=== PATIENT | male | born 1975 | race Two or more races ===

== ENCOUNTER 2017-08-31 14:59 | Emergency (ER) | payer OTHER ==
[~2017-08-31] VITALS: Ht 170.2 cm; Wt 100.0 kg
[2017-08-31] MEDS ORDERED: PredniSONE 20 MG TABLET PO ONE (16:30)
[2017-08-31] MEDS ORDERED: HydrOXYzine HCL 25 MG TABLET PO ONE (16:30)
[2017-08-31 17:30] VITALS: BP 132/78
== END 2017-08-31 17:42 | disposition home or self-care (01) ==
LOC: EMS 15:01
DX: T78.40XA Allergy, unspecified, initial encounter (principal); R21 Rash and other nonspecific skin eruption; Z88.8 Allergy status to other drugs, medicaments and biological substances; X58.XXXA Exposure to other specified factors, initial encounter
CPT/HCPCS: 99283; J7512

== ENCOUNTER 2017-11-19 17:10 | Emergency (ER) | payer OTHER ==
[~2017-11-19] VITALS: Ht 175.3 cm; Wt 104.5 kg
[2017-11-19] MEDS ORDERED: DiphenhydrAMINE HCL 25 MG CAPSULE PO ONE (18:15)
[2017-11-19] MEDS ORDERED: HYDROCORTISONE 1% 1.5 GM CREAM TP ONE (18:15)
[2017-11-19] MEDS ORDERED: HYDROCORTISONE 1% 30 GM OINTMENT TP ONE (18:45)
[2017-11-19 19:17] VITALS: BP 137/72
== END 2017-11-19 19:21 | disposition home or self-care (01) ==
LOC: EMS 17:11
DX: B35.3 Tinea pedis (principal); L25.8 Unspecified contact dermatitis due to other agents; Z88.8 Allergy status to other drugs, medicaments and biological substances
CPT/HCPCS: 99284